=== PATIENT | female | born 1990 | race Hispanic/Latino ===

== ENCOUNTER 2018-04-13 15:02 | Emergency (ER) | payer SELFPAY ==
[2018-04-13 16:10] LABS: Absolute Lymphocytes (CBC) 1.2 K/uL (0.7-4.9); Absolute Monocytes 0.7 K/uL (0.1-1.3); Absolute Neutrophil 6.4 K/uL (1.8-8.0); Basophils % 0.5 % (0-1.3); Hematocrit 29.8 % (36.0-45.0); Lymphocytes % 13.9 % (15.3-44.8); MPV 9.4 fL (7.6-11.3); Monocytes % 7.8 % (3.3-12.3)
[2018-04-13 16:25] LABS: BUN Blood Urea Nitrogen 9 mg/dL (7-18); Bicarbonate 27 mmol/L (21-32); Glucose Level 81 mg/dL (74-106); Potassium 3.7 mmol/L (3.5-5.1); Sodium Level 139 mmol/L (136-145)
[2018-04-13 16:36] LABS: Anisocytosis 2+; Blood Morphology Comment NOTED (NOT SEEN); Hypochromasia 3+; Platelet Estimate ADEQ; Polychromasia 1+; Urine White Blood Cell Casts OK
[2018-04-13 16:37] LABS: Elliptocytes 1+
[2018-04-13] MEDS ORDERED: NA CHLORIDE 0.9% 1,000 ML ONE (16:39)
[2018-04-13] MEDS ORDERED: KETOROLAC 30 MG/ML INJ ONE (16:39)
--- NOTE | 2018-04-13 17:58 | EDPHYS ---
Physician Documentation [facility] Name: Hoda Romero Age: 27 yrs Sex: Female : 1990 Arrival Date: 04/13/2018 Time: 15:07 Bed 24 Private MD: None, None ED Physician Juan Pablo Chavez HPI: 04/13 16:15 This 27 yrs old Female presents to ER via Wheelchair with complaints of Headache, Pain jr8 All Over. 16:15 The patient complains of pain to the forehead, right occipital area and right base of jr8 the skull. The patient describes the headache as a pressure, throbbing. Onset: The symptoms/episode began/occurred acutely, yesterday. Associated signs and symptoms: Pertinent positives: sore throat, body aches, fever. Severity of symptoms: At its worst the pain was moderate, in the emergency department the pain is unchanged. Headache History: Denies prior headaches. The patient has not experienced similar symptoms in the past. The patient has not recently seen a physician. 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 - Social history:: Smoking status: Patient/guardian denies using tobacco, never smoked. - Ebola Screening: : No symptoms or risks identified at this time. ROS: 16:15 Eyes: Negative for injury, pain, redness, and discharge, Neck: Negative for injury, jr8 pain, and swelling, Cardiovascular: Negative for chest pain, palpitations, and edema, Respiratory: Negative for shortness of breath, cough, wheezing, and pleuritic chest pain, Abdomen/GI: Negative for abdominal pain, nausea, vomiting, diarrhea, and constipation, Back: Negative for injury and pain, MS/Extremity: Negative for injury and deformity, Skin: Negative for injury, rash, and discoloration. 16:15 Constitutional: Positive for body aches, fatigue, fever. 16:15 ENT: Positive for sore throat. 16:15 Neuro: Positive for headache, Negative for altered mental status, dizziness, gait disturbance, seizure activity, syncope, visual changes, weakness. Exam: 16:15 Head/Face: Normocephalic, atraumatic. Eyes: Pupils equal round and reactive to light, jr8 extra-ocular motions intact. Lids and lashes normal. Conjunctiva and sclera are non-icteric and not injected. Cornea within normal limits. Periorbital areas with no swelling, redness, or edema. ENT: Nares patent. No nasal discharge, no septal abnormalities noted. Tympanic membranes are normal and external auditory canals are clear. Oropharynx with no redness, swelling, or masses, exudates, or evidence of obstruction, uvula midline. Mucous membranes moist. Neck: Trachea midline, no thyromegaly or masses palpated, and no cervical lymphadenopathy. Supple, full range of motion without nuchal rigidity, or vertebral point tenderness. No Meningismus. Cardiovascular: Regular rate and rhythm with a normal S1 and S2. No gallops, murmurs, or rubs. Normal PMI, no JVD. No pulse deficits. Respiratory: Lungs have equal breath sounds bilaterally, clear to auscultation and percussion. No rales, rhonchi or wheezes noted. No increased work of breathing, no retractions or nasal flaring. Abdomen/GI: Soft, non-tender, with normal bowel sounds. No distension or tympany. No guarding or rebound. No evidence of tenderness throughout. Back: No spinal tenderness. No costovertebral tenderness. Full range of motion. Skin: Warm, dry with normal turgor. Normal color with no rashes, no lesions, and no evidence of cellulitis. MS/ Extremity: Pulses equal, no cyanosis. Neurovascular intact. Full, normal range of motion. Neuro: Awake and alert, GCS 15, oriented to person, place, time, and situation. Cranial nerves II-XII grossly intact. Motor strength 5/5 in all extremities. Sensory grossly intact. Cerebellar exam normal. Normal gait. Vital Signs: 15:15 BP 99 / 65; Pulse 103; Resp 16; Temp 98.8; Pulse Ox 100% ; Weight 49.9 kg; Height 5 ft. sv 2 in. (157.48 cm); 18:14 BP 103 / 59; Pulse 93; Resp 16; Temp 98.1(O); Pulse Ox 100% ; lt1 15:15 Body Mass Index 20.12 (49.90 kg, 157.48 cm) sv MDM: 15:18 Patient medically screened. [facility] 17:57 Data reviewed: vital signs, nurses notes, lab test result(s), and as a result, I will jr8 discharge patient. Data interpreted: Pulse oximetry: on room air is 100 %. Interpretation: normal. Counseling: I had a detailed discussion with the patient and/or guardian regarding: the historical points, exam findings, and any diagnostic results supporting the discharge/admit diagnosis, lab results, the need for outpatient follow up, a family practitioner, to return to the emergency department if symptoms worsen or persist or if there are any questions or concerns that arise at home. Response to treatment: the patient's symptoms have markedly improved after treatment, patient is well hydrated. 04/13 15:37 Order name: Flu; Complete Time: 17:34 [facility] 04/13 15:37 Order name: CBC with Diff; Complete Time: 16:39 [facility] 04/13 15:37 Order name: Basic Metabolic Panel; Complete Time: 16:31 [facility] 04/13 16:37 Order name: CBC Smear Scan; Complete Time: 16:39 [facility] 04/13 15:37 Order name: IV; Complete Time: 16:10 [facility] Administered Medications: 16:33 Drug: NS 0.9% 1000 ml Route: IV; Rate: 1000 ml; Site: right antecubital; ls4 18:37 Follow up: IV Status: Completed infusion; IV Intake: 1000ml 4 16:33 Drug: TORadol 30 mg Route: IVP; Site: right antecubital; ls4 17:02 Follow up: Response: No adverse reaction ls4 Disposition: 04/14 07:09 Co-signature as Attending Physician, Juan Pablo Chavez MD I agree with the assessment and [facility] plan of care. Disposition: 04/13/18 17:57 Discharged to Home. Impression: Myalgia, Headache. - Condition is Stable. - Discharge Instructions: Migraine Headache, Muscle Pain, Adult. - Medication Reconciliation Form, Thank You Letter, Antibiotic Education, Prescription Opioid Use form. - Follow up: Private Physician; When: 2 - 3 days; Reason: Recheck today's complaints, Continuance of care, Re-evaluation by your physician. - Problem is new. - Symptoms have improved. Signatures: Dispatcher [facility]Le[facility] East Norwegian StreetNadege Kern RN RN sv Anderson, Corey, MD MD cha Roszak, Nicko, PA PA jr8 Claribel Hill, RN RN ls4 Corrections: (The following items were deleted from the chart) 04/13 18:38 17:57 04/13/2018 17:57 Discharged to Home. Impression: Myalgia; Headache. Condition is ls4 Stable. Forms are Medication Reconciliation Form, Thank You Letter, Antibiotic Education, Prescription Opioid Use. Follow up: Private Physician; When: 2 - 3 days; Reason: Recheck today's complaints, Continuance of care, Re-evaluation by your physician. Problem is new. Symptoms have improved. jr8
--- NOTE | 2018-04-13 17:58 | ER ---
Nurse's Notes [facility] Name: Hoda Romero Age: 27 yrs Sex: Female : 1990 Arrival Date: 04/13/2018 Time: 15:07 Bed 24 Private MD: None, None Diagnosis: Myalgia;Headache Presentation: 04/13 15:13 Presenting complaint: Patient states: body aches, headache (frontal and occipital) x 1 sv day. Transition of care: patient was not received from another setting of care. Onset of symptoms was April 12, 2018. Care prior to arrival: None. 15:13 Method Of Arrival: Wheelchair sv 15:13 Acuity: KOURTNEY 3 sv 16:37 Risk Assessment: Do you want to hurt yourself or someone else? Patient reports no ls4 desire to harm self or others. Initial Sepsis Screen: Does the patient meet any 2 criteria? No. Patient's initial sepsis screen is negative. Does the patient have a suspected source of infection? No. Patient's initial sepsis screen is negative. Triage Assessment: 16:34 General: Appears in no apparent distress. Behavior is calm, cooperative, Smells of. ls4 Pain: Pain currently is 7 out of 10 on a pain scale. Pain began 1 day ago. Neuro: Level of Consciousness is awake, alert, Oriented to person, place, time, situation, Assistant Producer are equal bilaterally Moves all extremities. Gait is steady, Speech is normal, Facial symmetry appears normal, Pupils are PERRLA, Reports headache frontal area. 16:38 Pain: Also complains of no other associated symptoms. ls4 18:26 Headache History: Denies prior headaches. 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 - Social history:: Smoking status: Patient/guardian denies using tobacco, never smoked. - Ebola Screening: : No symptoms or risks identified at this time. Screenin:34 Abuse screen: Denies threats or abuse. Denies injuries from another. Nutritional ls4 screening: No deficits noted. Tuberculosis screening: No symptoms or risk factors identified. Fall Risk None identified. Vital Signs: 15:15 BP 99 / 65; Pulse 103; Resp 16; Temp 98.8; Pulse Ox 100% ; Weight 49.9 kg; Height 5 ft. sv 2 in. (157.48 cm); 18:14 BP 103 / 59; Pulse 93; Resp 16; Temp 98.1(O); Pulse Ox 100% ; lt1 15:15 Body Mass Index 20.12 (49.90 kg, 157.48 cm) sv ED Course: 15:07 Patient arrived in ED. sb2 15:08 None, None is Private Physician. sb2 15:14 Triage completed. sv 15:15 Arm band placed on. sv 15:18 Nicko Romo PA is PHCP. jr8 15:18 Juan Pablo Chavez MD is Attending Physician. jr8 15:25 Claribel iHll, RN is Primary Nurse. ls4 16:36 No provider procedures requiring assistance completed. ls4 16:37 Patient has correct armband on for positive identification. Bed in low position. Call ls4 light in reach. Side rails up X 1. 18:27 IV discontinued, intact, bleeding controlled, No redness/swelling at site. ls4 Administered Medications: 16:33 Drug: NS 0.9% 1000 ml Route: IV; Rate: 1000 ml; Site: right antecubital; ls4 18:37 Follow up: IV Status: Completed infusion; IV Intake: 1000ml ls4 16:33 Drug: TORadol 30 mg Route: IVP; Site: right antecubital; ls4 17:02 Follow up: Response: No adverse reaction ls4 Intake: 18:37 IV: 1000ml; Total: 1000ml. ls4 Outcome: 17:57 Discharge ordered by . jr8 18:26 Discharged to home ambulatory, with family. ls4 18:26 Condition: stable 18:26 Discharge instructions given to patient, family, Instructed on discharge instructions, follow up and referral plans. medication usage, Demonstrated understanding of instructions, follow-up care, medications. 18:38 Patient left the ED. ls4 Signatures: Nadege Kelley, RN RN Nicko Romo PA PA jr8 Kate Engle sb2 Claribel Hill RN RN ls4 Angelique Reed lt1 Corrections: (The following items were deleted from the chart) 18:29 18:27 Patient maintains SpO2 saturation greater than 95% on room air. Oxygen ls4 administration via nasal cannula ls4
== END 2018-04-13 18:38 | disposition home or self-care (01) ==
LOC: ER 15:02
DX: M79.10 Myalgia, unspecified site (principal)
CPT/HCPCS: 36415; 80048; 85025; 87804; 96361; 96374; 99283; J7030